=== PATIENT | male | born 1955 | race Caucasian/White ===

== ENCOUNTER 2023-04-03 05:35 | Inpatient (IN) | payer BC ==
[~2023-04-03] VITALS: Ht 172.7 cm; Wt 90.7 kg
[2023-04-03] MEDS ORDERED: METOCLOPRAMIDE HCL 10MG/2ML VIAL IV STA (06:01)
[2023-04-03] MEDS ORDERED: ONDANSETRON HCL 4MG/2ML INJ IV STA (06:01)
[2023-04-03 06:25] LABS: HEMATOCRIT. 36.2 % (42.0-52.0); HEMOGLOBIN. 11.8 g/dL (14.0-18.0); MEAN CORPUSCULAR HEMOGLOBIN 36.6 pg (28.0-32.0); MEAN CORPUSCULAR HGB CONC 32.6 g/dL (31.0-37.0); MEAN CORPUSCULAR VOLUME 112.2 fL (80.0-94.0); RED BLOOD CELL COUNT 3.23 mill/uL (4.7-6.1); RED CELL DISTRIBUTION WIDTH 15.8 % (11.6-14.6)
[2023-04-03 06:33] LABS: PROTHROMBIN TIME 20.6 sec (9.6-11.0)
[2023-04-03 06:41] LABS: ALANINE AMINOTRANSFERASE 35 IU/L (10-49); ALBUMIN 2.7 g/dL (3.2-4.8); ASPARTATE AMINOTRANSFERASE 48 IU/L (<34); BILIRUBIN TOTAL 12.7 mg/dL (0.1-1.0); CALCIUM 8.5 mg/dL (8.7-10.4); CARBON DIOXIDE 22 mEq/L (21-32); CHLORIDE 97 mEq/L (98-107); CREATININE 0.9 mg/dL (0.6-1.3); GLUCOSE 96 mg/dL (70-105); POTASSIUM 4.1 mEq/L (3.5-5.1); PROTEIN TOTAL 7.3 g/dL (6.0-8.3); SODIUM 128 mEq/L (136-145); TROPONIN I HIGH SENSITIVITY 5 ng/L (3.0-53); UREA NITROGEN BLOOD 19 mg/dL (9-23)
[2023-04-03 06:57] LABS: DIFFERENTIAL COMMENT 1
[2023-04-03] MEDS ORDERED: CEFTRIAXONE 1GM PREMIX 50 ML IV ONE (07:00)
[2023-04-03 07:31] LABS: PLATELET ESTIMATE NORMAL
[2023-04-03 07:34] LABS: PLATELET 132 x1000/uL (130-400)
[2023-04-03 09:15] VITALS: BP 103/59; PULSE 11; RESP 20; TEMP 98
[2023-04-03 09:55] VITALS: BP 103/59; PULSE 97; RESP 20; TEMP 97.8
[2023-04-03 12:00] VITALS: BP 110/64; PULSE 100; RESP 20; TEMP 97.8
[2023-04-03] MEDS ORDERED: ONDANSETRON HCL 4MG/2ML INJ IV PRN (14:15)
[2023-04-03 14:43] LABS: CLARITY URINE TURBID (CLEAR); COLOR URINE ORANGE (YELLOW); GLUCOSE URINE NEGATIVE (NEGATIVE); KETONES URINE NEGATIVE (NEGATIVE); LEUKOCYTE ESTERASE URINE 1+ (NEGATIVE); NITRITE URINE POSITIVE (NEGATIVE); OCCULT BLOOD URINE 1+ (NEGATIVE); PROTEIN URINE 1+ (NEGATIVE)
[2023-04-03 14:56] LABS: SQUAMOUS EPITHELIAL CELL URINE 1+ /lpf (RARE/1+)
[2023-04-03 14:57] LABS: BACTERIA URINE 4+
[2023-04-03 14:58] LABS: RBC URINE 0-2 /hpf (0-2)
[2023-04-03 16:00] VITALS: BP 102/46; PULSE 98; RESP 18; TEMP 97.8
[2023-04-03] MEDS ORDERED: PIPERACILLIN/TAZO 3.375G/50ML 50 ML IV STA (17:54)
[2023-04-03] MEDS ORDERED: MORPHINE SULFATE 2 MG/ML CPJ (NOT FOR IM USE) IV NR (18:00)
[2023-04-03] MEDS: PANTOPRAZOLE SODIUM 40 MG/VIAL IV SCH (19:13)
[2023-04-03] MEDS: DEXT 5%/0.9% NACL 1,000 ML IV SCH (19:14)
[2023-04-03 20:00] VITALS: BP 104/46; PULSE 106; RESP 19; TEMP 98.1
[2023-04-03] MEDS ORDERED: PIPERACILLIN/TAZO 3.375G/50ML IV SCH (20:00)
[2023-04-04] VITALS (8 sets, daily range): BP systolic 99–156; BP diastolic 49–79; PULSE 96–129; RESP 16–21; TEMP 97.4–99.9
[2023-04-04 00:02] LABS: INR 2.2; PROTHROMBIN TIME 22.3 sec (9.6-11.0)
[2023-04-04] MEDS: MEROPENEM 500 MG in SODIUM CHLORIDE 0.9% 50 ML IV SCH ×2 (00:38→06:46)
[2023-04-04 06:50] LABS: ALANINE AMINOTRANSFERASE 24 IU/L (10-49); ALBUMIN 2.2 g/dL (3.2-4.8); ASPARTATE AMINOTRANSFERASE 32 IU/L (<34); BASOPHILS % 0.1 % (0.0-2.0); BILIRUBIN DIRECT 4.4 mg/dL (<=3.0); CALCIUM 8.1 mg/dL (8.7-10.4); CARBON DIOXIDE 23 mEq/L (21-32); CHLORIDE 98 mEq/L (98-107); CREATININE 0.9 mg/dL (0.6-1.3); DIFFERENTIAL COMMENT 0; GLUCOSE 145 mg/dL (70-105); HEMATOCRIT. 29.7 % (42.0-52.0); HEMOGLOBIN. 10.1 g/dL (14.0-18.0); LYMPHOCYTES % 7.5 % (20.0-50.0); MEAN CORPUSCULAR HEMOGLOBIN 36.1 pg (28.0-32.0); MEAN CORPUSCULAR HGB CONC 33.9 g/dL (31.0-37.0); MEAN CORPUSCULAR VOLUME 106.6 fL (80.0-94.0); MEAN PLATELET VOLUME 7.9 fl (7.4-10.4); MONOCYTES % 5.6 % (2.0-8.0); NEUTROPHILS % 85.8 % (40.0-76.0); PLATELET 124 x1000/uL (130-400); POTASSIUM 3.4 mEq/L (3.5-5.1); PROTEIN TOTAL 6.4 g/dL (6.0-8.3); RED BLOOD CELL COUNT 2.79 mill/uL (4.7-6.1); RED CELL DISTRIBUTION WIDTH 15.3 % (11.6-14.6); SODIUM 129 mEq/L (136-145); UREA NITROGEN BLOOD 41 mg/dL (9-23); WHITE BLOOD COUNT 12.4 x1000/uL (4.5-11.0)
[2023-04-04 06:51] LABS: BILIRUBIN TOTAL 8.4 mg/dL (0.1-1.0)
[2023-04-04] MEDS: DEXT 5%/0.9% NACL 1,000 ML IV SCH (06:52)
[2023-04-04] MEDS ORDERED: ALBUMIN HUMAN 25GM/100ML (25%) IV PRN (09:00)
[2023-04-04 10:53] LABS: INR 1.9; PROTHROMBIN TIME 19.6 sec (9.6-11.0)
[2023-04-04 11:05] LABS: CALCIUM 8.2 mg/dL (8.7-10.4); CARBON DIOXIDE 26 mEq/L (21-32); CHLORIDE 99 mEq/L (98-107); CREATININE 0.8 mg/dL (0.6-1.3); GLUCOSE 117 mg/dL (70-105); IRON 28 ug/dL (65-175); POTASSIUM 3.9 mEq/L (3.5-5.1); SODIUM 130 mEq/L (136-145); TOTAL IRON BINDING CAPACITY 172 ug/dl (250-425); UREA NITROGEN BLOOD 40 mg/dL (9-23)
[2023-04-04 11:23] LABS: BASOPHILS % 0.1 % (0.0-2.0); DIFFERENTIAL COMMENT 0; EOSINOPHILS % 0.7 % (0.0-5.0); HEMATOCRIT. 31.2 % (42.0-52.0); HEMOGLOBIN. 10.6 g/dL (14.0-18.0); LYMPHOCYTES % 7.2 % (20.0-50.0); MEAN CORPUSCULAR HEMOGLOBIN 35.9 pg (28.0-32.0); MEAN CORPUSCULAR HGB CONC 33.8 g/dL (31.0-37.0); MEAN CORPUSCULAR VOLUME 106.3 fL (80.0-94.0); MEAN PLATELET VOLUME 8.8 fl (7.4-10.4); MONOCYTES % 6.2 % (2.0-8.0); NEUTROPHILS % 85.8 % (40.0-76.0); PLATELET 144 x1000/uL (130-400); RED BLOOD CELL COUNT 2.94 mill/uL (4.7-6.1); RED CELL DISTRIBUTION WIDTH 15.7 % (11.6-14.6); WHITE BLOOD COUNT 12.5 x1000/uL (4.5-11.0)
[2023-04-04 11:41] LABS: FERRITIN 1028 ng/mL (22-322); FOLIC ACID (FOLATE) SERUM 6.28 ng/mL (>5.38); HEPATITIS A AB IGM NEGATIVE (Negative); HEPATITIS B CORE AB IGM NEGATIVE (Negative); HEPATITIS B SURFACE ANTIGEN NEGATIVE (Negative); HEPATITIS C AB NON REACTIVE (Neg) (Negative)
[2023-04-04 11:45] LABS: VITAMIN B12 SERUM > 2000 pg/mL (211-911)
[2023-04-04 11:57] LABS: AMMONIA 21 uMol/L (<32)
[2023-04-04] MEDS ORDERED: LACTULOSE 20G/30ML UDC PO NR (12:45)
[2023-04-04] MEDS: MEROPENEM 1000MG in NORMAL SALINE 100ML IV SCH (14:59)
[2023-04-04] MEDS: PANTOPRAZOLE SODIUM 40 MG/VIAL IV SCH (14:59)
[2023-04-04] MEDS: PHYTONADIONE 10MG/ML INJ SUBCUT SCH (15:00)
[2023-04-05] VITALS (10 sets, daily range): BP systolic 106–138; BP diastolic 55–86; PULSE 77–102; RESP 16–20; TEMP 97.6–100.9
[2023-04-05] MEDS: MEROPENEM 1000MG in NORMAL SALINE 100ML IV SCH ×4 (01:46→20:52)
[2023-04-05] MEDS: METOPROLOL TARTRATE 25MG TABLET PO SCH ×2 (01:47→09:00)
[2023-04-05] MEDS: DEXT 5%/0.9% NACL 1,000 ML IV SCH ×3 (01:47→23:26)
[2023-04-05 07:17] LABS: BASOPHILS % 0.2 % (0.0-2.0); DIFFERENTIAL COMMENT 0; EOSINOPHILS % 3.8 % (0.0-5.0); HEMATOCRIT. 28.6 % (42.0-52.0); LYMPHOCYTES % 8.2 % (20.0-50.0); MEAN CORPUSCULAR HEMOGLOBIN 36.6 pg (28.0-32.0); MEAN CORPUSCULAR HGB CONC 34.9 g/dL (31.0-37.0); MEAN CORPUSCULAR VOLUME 104.8 fL (80.0-94.0); MEAN PLATELET VOLUME 8.4 fl (7.4-10.4); MONOCYTES % 9.5 % (2.0-8.0); NEUTROPHILS % 78.3 % (40.0-76.0); PLATELET 124 x1000/uL (130-400); RED BLOOD CELL COUNT 2.72 mill/uL (4.7-6.1); RED CELL DISTRIBUTION WIDTH 15.4 % (11.6-14.6); WHITE BLOOD COUNT 10.4 x1000/uL (4.5-11.0)
[2023-04-05 08:06] LABS: INR 1.6; PROTHROMBIN TIME 16.5 sec (9.6-11.0)
[2023-04-05 08:19] LABS: ALANINE AMINOTRANSFERASE 29 IU/L (10-49); ALBUMIN 2.3 g/dL (3.2-4.8); ASPARTATE AMINOTRANSFERASE 58 IU/L (<34); BILIRUBIN DIRECT 3.5 mg/dL (<=3.0); BILIRUBIN TOTAL 6.7 mg/dL (0.1-1.0); CARBON DIOXIDE 21 mEq/L (21-32); CHLORIDE 102 mEq/L (98-107); GLUCOSE 95 mg/dL (70-105); POTASSIUM 3.3 mEq/L (3.5-5.1); PROTEIN TOTAL 5.9 g/dL (6.0-8.3); SODIUM 133 mEq/L (136-145); UREA NITROGEN BLOOD 18 mg/dL (9-23)
[2023-04-05 08:22] LABS: CREATININE 0.4 mg/dL (0.6-1.3)
[2023-04-05] MEDS: PHYTONADIONE 10MG/ML INJ SUBCUT SCH ×2 (08:50→09:05)
[2023-04-05] MEDS: PANTOPRAZOLE SODIUM 40 MG/VIAL IV SCH (08:50)
[2023-04-05] MEDS ORDERED: DILTIAZEM HCL 5MG/ML 5ML VIAL IV SCH (09:00)
[2023-04-05] MEDS ORDERED: POTASSIUM CHLORIDE 20MEQ TABLET SR PO NR (11:30)
[2023-04-05] MEDS ORDERED: LIDOCAINE HCL 1% 10 MG/ML 10ML VIAL ONE (13:06)
[2023-04-05] MEDS ORDERED: SODIUM BICARBONATE 4% (2.4MEQ) 5ML VIAL IV ONE (13:07)
[2023-04-05 16:40] LABS: BODY FLUID MONOCYTES 5 %
[2023-04-05 16:43] LABS: BODY FLUID RBC 520 /cu mm (0-2000); BODY FLUID WBC 2465 /cu mm (0-200)
[2023-04-05] MEDS ORDERED: DILTIAZEM HCL 5MG/ML 5ML VIAL IV PRN (16:45)
[2023-04-05] MEDS: METOPROLOL TARTRATE 50MG TABLET PO SCH (20:53)
[2023-04-05] MEDS: ACETAMINOPHEN 325MG TABLET PO PRN (21:27)
[2023-04-06 04:00] VITALS: BP 109/54; PULSE 72; RESP 17; TEMP 99
[2023-04-06] MEDS: MEROPENEM 1000MG in NORMAL SALINE 100ML IV SCH ×3 (05:26→22:46)
[2023-04-06 07:05] LABS: INR 1.7; PROTHROMBIN TIME 17.7 sec (9.6-11.0)
[2023-04-06 07:12] LABS: HEMOGLOBIN. 10.7 g/dL (14.0-18.0); MEAN CORPUSCULAR HEMOGLOBIN 36.3 pg (28.0-32.0); MEAN CORPUSCULAR HGB CONC 34.4 g/dL (31.0-37.0); MEAN CORPUSCULAR VOLUME 105.6 fL (80.0-94.0); MEAN PLATELET VOLUME 8.5 fl (7.4-10.4); PLATELET 119 x1000/uL (130-400); RED BLOOD CELL COUNT 2.94 mill/uL (4.7-6.1); RED CELL DISTRIBUTION WIDTH 15.9 % (11.6-14.6); WHITE BLOOD COUNT 5.3 x1000/uL (4.5-11.0)
[2023-04-06 07:23] LABS: DIFFERENTIAL COMMENT 1
[2023-04-06 07:55] LABS: ALANINE AMINOTRANSFERASE 35 IU/L (10-49); ALBUMIN 2.1 g/dL (3.2-4.8); ASPARTATE AMINOTRANSFERASE 73 IU/L (<34); CALCIUM 7.9 mg/dL (8.7-10.4); CARBON DIOXIDE 24 mEq/L (21-32); CHLORIDE 103 mEq/L (98-107); CREATININE 0.4 mg/dL (0.6-1.3); GLUCOSE 97 mg/dL (70-105); POTASSIUM 3.9 mEq/L (3.5-5.1); PROTEIN TOTAL 6.1 g/dL (6.0-8.3); SODIUM 133 mEq/L (136-145); UREA NITROGEN BLOOD 18 mg/dL (9-23)
[2023-04-06 08:00] VITALS: BP 124/65; PULSE 72; RESP 18; TEMP 98.9
[2023-04-06] MEDS: PHYTONADIONE 10MG/ML INJ SUBCUT SCH (09:57)
[2023-04-06] MEDS: PANTOPRAZOLE SODIUM 40 MG/VIAL IV SCH (09:57)
[2023-04-06] MEDS: METOPROLOL TARTRATE 50MG TABLET PO SCH ×2 (10:01→22:46)
[2023-04-06 12:00] VITALS: BP 115/69; PULSE 72; RESP 18; TEMP 97.9
[2023-04-06 14:00] LABS: PLATELET ESTIMATE SLIGHTLY DECREASED; TARGET CELLS 1+
[2023-04-06 16:00] VITALS: BP 136/69; PULSE 83; RESP 20; TEMP 98
[2023-04-06] MEDS: DEXT 5%/0.9% NACL 1,000 ML IV SCH (17:50)
[2023-04-06 20:00] VITALS: BP 127/72; PULSE 75; RESP 18; TEMP 98.9
[2023-04-07] VITALS: BP 109/63; PULSE 75; RESP 17; TEMP 97.5
[2023-04-07] MEDS: DEXT 5%/0.9% NACL 1,000 ML IV SCH ×2 (01:08→14:30)
[2023-04-07 04:00] VITALS: BP 119/68; PULSE 69; RESP 18; TEMP 98
[2023-04-07] MEDS: MEROPENEM 1000MG in NORMAL SALINE 100ML IV SCH ×2 (05:30→14:30)
[2023-04-07 06:54] LABS: INR 1.6; PROTHROMBIN TIME 17.1 sec (9.6-11.0)
[2023-04-07 07:14] LABS: HEMATOCRIT. 32.6 % (42.0-52.0); HEMOGLOBIN. 10.9 g/dL (14.0-18.0); MEAN CORPUSCULAR HEMOGLOBIN 35.6 pg (28.0-32.0); MEAN CORPUSCULAR HGB CONC 33.3 g/dL (31.0-37.0); MEAN CORPUSCULAR VOLUME 106.8 fL (80.0-94.0); MEAN PLATELET VOLUME 8.4 fl (7.4-10.4); PLATELET 125 x1000/uL (130-400); RED BLOOD CELL COUNT 3.05 mill/uL (4.7-6.1); RED CELL DISTRIBUTION WIDTH 15.5 % (11.6-14.6)
[2023-04-07 07:18] LABS: ALANINE AMINOTRANSFERASE 37 IU/L (10-49); ALBUMIN 2.1 g/dL (3.2-4.8); ASPARTATE AMINOTRANSFERASE 75 IU/L (<34); CALCIUM 7.8 mg/dL (8.7-10.4); CARBON DIOXIDE 23 mEq/L (21-32); CHLORIDE 100 mEq/L (98-107); CREATININE 0.4 mg/dL (0.6-1.3); GLUCOSE 107 mg/dL (70-105); POTASSIUM 3.9 mEq/L (3.5-5.1); PROTEIN TOTAL 6.3 g/dL (6.0-8.3); SODIUM 130 mEq/L (136-145); UREA NITROGEN BLOOD 15 mg/dL (9-23)
[2023-04-07 07:20] LABS: DIFFERENTIAL COMMENT 1
[2023-04-07 08:00] VITALS: BP 126/71; PULSE 68; RESP 18; TEMP 98.4
[2023-04-07] MEDS: PANTOPRAZOLE SODIUM 40 MG/VIAL IV SCH (08:52)
[2023-04-07] MEDS: PHYTONADIONE 10MG/ML INJ SUBCUT SCH (08:52)
[2023-04-07] MEDS: METOPROLOL TARTRATE 50MG TABLET PO SCH ×2 (08:55→20:46)
[2023-04-07 12:00] VITALS: BP 117/58; PULSE 80; RESP 18; TEMP 98
[2023-04-07 16:00] VITALS: BP 130/65; PULSE 77; RESP 18; TEMP 98.2
[2023-04-07 16:54] LABS: PLATELET ESTIMATE DECREASED
[2023-04-07] MEDS ORDERED: MAGNESIUM 4 G PREMIX 100 ML IV NR (17:00)
[2023-04-07] MEDS: ACETAMINOPHEN 325MG TABLET PO PRN (18:42)
[2023-04-07 20:00] VITALS: BP 100/61; PULSE 66; RESP 20; TEMP 97.4
[2023-04-07] MEDS: MEROPENEM 1,000 MG in SODIUM CHLORIDE 0.9% 100 ML IV SCH (20:46)
[2023-04-08] VITALS: BP 134/71; PULSE 72; RESP 19; TEMP 97.1
[2023-04-08 04:00] VITALS: BP 120/69; PULSE 61; RESP 18; TEMP 97.3
[2023-04-08] MEDS: MEROPENEM 1,000 MG in SODIUM CHLORIDE 0.9% 100 ML IV SCH ×3 (06:26→23:36)
[2023-04-08 07:38] LABS: ALANINE AMINOTRANSFERASE 38 IU/L (10-49); ASPARTATE AMINOTRANSFERASE 81 IU/L (<34); BILIRUBIN DIRECT 2.9 mg/dL (<=3.0); BILIRUBIN TOTAL 5.4 mg/dL (0.1-1.0); CALCIUM 7.7 mg/dL (8.7-10.4); CARBON DIOXIDE 24 mEq/L (21-32); CHLORIDE 101 mEq/L (98-107); CREATININE 0.5 mg/dL (0.6-1.3); GLUCOSE 89 mg/dL (70-105); PHOSPHORUS 2.6 mg/dL (2.5-4.9); POTASSIUM 4.3 mEq/L (3.5-5.1); PROTEIN TOTAL 6.2 g/dL (6.0-8.3); SODIUM 130 mEq/L (136-145); UREA NITROGEN BLOOD 13 mg/dL (9-23)
[2023-04-08 08:00] VITALS: BP 121/68; PULSE 65; RESP 20; TEMP 98.6
[2023-04-08] MEDS: METOPROLOL TARTRATE 50MG TABLET PO SCH ×2 (09:01→23:37)
[2023-04-08] MEDS: PANTOPRAZOLE SODIUM 40 MG/VIAL IV SCH (09:01)
[2023-04-08] MEDS ORDERED: MAGNESIUM 2 G PREMIX 50 ML IV ONE (10:00)
[2023-04-08] MEDS ORDERED: MAGNESIUM 4 G PREMIX 100 ML IV SCH (10:00)
[2023-04-08] MEDS ORDERED: LIDOCAINE HCL 1% 10 MG/ML 10ML VIAL ONE (10:29)
[2023-04-08 12:00] VITALS: BP 118/79; PULSE 70; RESP 18; TEMP 98.4
[2023-04-08] MEDS ORDERED: METO-539 MT (12:48)
[2023-04-08 13:34] LABS: AMMONIA 55 uMol/L (<32)
[2023-04-08 16:00] VITALS: BP 130/67; PULSE 71; RESP 18; TEMP 97.6
[2023-04-08 20:00] VITALS: BP 124/72; PULSE 68; RESP 18; TEMP 98
[2023-04-09] VITALS: BP 133/79; PULSE 66; RESP 17; TEMP 98.4
[2023-04-09 04:00] VITALS: BP 127/84; PULSE 67; RESP 18; TEMP 99
[2023-04-09] MEDS: MEROPENEM 1,000 MG in SODIUM CHLORIDE 0.9% 100 ML IV SCH ×3 (06:23→21:43)
[2023-04-09 07:27] LABS: ALANINE AMINOTRANSFERASE 42 IU/L (10-49); ALBUMIN 2.1 g/dL (3.2-4.8); ASPARTATE AMINOTRANSFERASE 91 IU/L (<34); BILIRUBIN DIRECT 2.6 mg/dL (<=3.0); BILIRUBIN TOTAL 6.6 mg/dL (0.1-1.0); CALCIUM 7.3 mg/dL (8.7-10.4); CARBON DIOXIDE 24 mEq/L (21-32); CHLORIDE 103 mEq/L (98-107); CREATININE 0.4 mg/dL (0.6-1.3); GLUCOSE 95 mg/dL (70-105); PHOSPHORUS 2.5 mg/dL (2.5-4.9); POTASSIUM 4.8 mEq/L (3.5-5.1); PROTEIN TOTAL 6.5 g/dL (6.0-8.3); SODIUM 129 mEq/L (136-145); UREA NITROGEN BLOOD 14 mg/dL (9-23)
[2023-04-09 07:36] LABS: HEMATOCRIT. 33.1 % (42.0-52.0); HEMOGLOBIN. 11.1 g/dL (14.0-18.0); MEAN CORPUSCULAR HEMOGLOBIN 35.6 pg (28.0-32.0); MEAN CORPUSCULAR HGB CONC 33.7 g/dL (31.0-37.0); MEAN CORPUSCULAR VOLUME 105.7 fL (80.0-94.0); MEAN PLATELET VOLUME 8.6 fl (7.4-10.4); PLATELET 116 x1000/uL (130-400); RED BLOOD CELL COUNT 3.13 mill/uL (4.7-6.1); RED CELL DISTRIBUTION WIDTH 15.5 % (11.6-14.6); WHITE BLOOD COUNT 6.5 x1000/uL (4.5-11.0)
[2023-04-09 08:00] VITALS: BP 119/69; PULSE 67; RESP 18; TEMP 97.9
[2023-04-09 08:14] LABS: DIFFERENTIAL COMMENT 1
[2023-04-09] MEDS: SODIUM CHLORIDE 0.9% 1,000 ML IV SCH (08:15)
[2023-04-09] MEDS ORDERED: LACTULOSE 20G/30ML UDC PO NR (08:15)
[2023-04-09] MEDS: PANTOPRAZOLE SODIUM 40 MG/VIAL IV SCH (09:21)
[2023-04-09] MEDS: METOPROLOL TARTRATE 50MG TABLET PO SCH ×2 (09:21→21:43)
[2023-04-09 09:31] LABS: INR 1.6; PROTHROMBIN TIME 16.6 sec (9.6-11.0)
[2023-04-09] MEDS ORDERED: MAGNESIUM 2 G PREMIX 50 ML IV NR (10:00)
[2023-04-09 12:00] VITALS: BP 130/73; PULSE 66; RESP 18; TEMP 97.3
[2023-04-09 15:07] LABS: ANISOCYTOSIS 1+; PLATELET ESTIMATE SLIGHTLY DECREASED; TARGET CELLS 1+
[2023-04-09 16:00] VITALS: BP 120/79; PULSE 84; RESP 18; TEMP 97.4
[2023-04-09] MEDS ORDERED: FURO20TA4 PO (18:40)
[2023-04-09 20:00] VITALS: BP 138/67; PULSE 75; RESP 17; TEMP 98.1
[2023-04-10] VITALS: BP 108/54; PULSE 69; RESP 20; TEMP 98.6
[2023-04-10 04:00] VITALS: BP 110/52; PULSE 78; RESP 18; TEMP 98.2
[2023-04-10] MEDS: MEROPENEM 1,000 MG in SODIUM CHLORIDE 0.9% 100 ML IV SCH ×3 (05:52→20:54)
[2023-04-10 07:56] LABS: ALANINE AMINOTRANSFERASE 40 IU/L (10-49); ASPARTATE AMINOTRANSFERASE 84 IU/L (<34); BILIRUBIN DIRECT 2.6 mg/dL (<=3.0); BILIRUBIN TOTAL 6.8 mg/dL (0.1-1.0); CALCIUM 7.7 mg/dL (8.7-10.4); CARBON DIOXIDE 23 mEq/L (21-32); CHLORIDE 105 mEq/L (98-107); CREATININE 0.3 mg/dL (0.6-1.3); GLUCOSE 89 mg/dL (70-105); PHOSPHORUS 2.4 mg/dL (2.5-4.9); POTASSIUM 4.5 mEq/L (3.5-5.1); PROTEIN TOTAL 6.2 g/dL (6.0-8.3); SODIUM 133 mEq/L (136-145); UREA NITROGEN BLOOD 13 mg/dL (9-23)
[2023-04-10 08:00] VITALS: BP 121/71; PULSE 65; RESP 18; TEMP 97.4
[2023-04-10 08:21] LABS: BASOPHILS % 0.9 % (0.0-2.0); DIFFERENTIAL COMMENT 0; EOSINOPHILS % 8.5 % (0.0-5.0); HEMATOCRIT. 30.6 % (42.0-52.0); HEMOGLOBIN. 10.2 g/dL (14.0-18.0); LYMPHOCYTES % 24.1 % (20.0-50.0); MEAN CORPUSCULAR HEMOGLOBIN 35.5 pg (28.0-32.0); MEAN CORPUSCULAR HGB CONC 33.5 g/dL (31.0-37.0); MEAN CORPUSCULAR VOLUME 106.2 fL (80.0-94.0); MEAN PLATELET VOLUME 8.1 fl (7.4-10.4); MONOCYTES % 12.6 % (2.0-8.0); NEUTROPHILS % 53.9 % (40.0-76.0); PLATELET 110 x1000/uL (130-400); RED BLOOD CELL COUNT 2.88 mill/uL (4.7-6.1); RED CELL DISTRIBUTION WIDTH 15.3 % (11.6-14.6); WHITE BLOOD COUNT 6.2 x1000/uL (4.5-11.0)
[2023-04-10] MEDS: PANTOPRAZOLE SODIUM 40 MG/VIAL IV SCH (08:24)
[2023-04-10] MEDS: METOPROLOL TARTRATE 50MG TABLET PO SCH ×2 (08:25→20:54)
[2023-04-10] MEDS: SODIUM CHLORIDE 0.9% 1,000 ML IV SCH (08:25)
[2023-04-10] MEDS ORDERED: MAGNESIUM 2 G PREMIX 50 ML IV NR (10:00)
[2023-04-10 12:00] VITALS: BP 135/66; PULSE 61; RESP 16; TEMP 97.8
[2023-04-10 12:03] LABS: AMMONIA < 10 uMol/L (<32)
[2023-04-10 16:00] VITALS: BP 127/61; PULSE 63; RESP 18; TEMP 97.7
[2023-04-10 20:00] VITALS: BP 115/56; PULSE 75; RESP 17; TEMP 97.6
[2023-04-10] MEDS: RIFAXIMIN 550 MG TABLET PO SCH (20:53)
[2023-04-11] VITALS: BP 116/59; PULSE 77; RESP 18; TEMP 97.8
[2023-04-11] MEDS: SODIUM CHLORIDE 0.9% 1,000 ML IV SCH ×2 (00:32→20:15)
[2023-04-11 04:00] VITALS: BP 136/77; PULSE 79; RESP 17; TEMP 97.7
[2023-04-11] MEDS: MEROPENEM 1,000 MG in SODIUM CHLORIDE 0.9% 100 ML IV SCH ×3 (06:24→23:45)
[2023-04-11 07:36] LABS: BASOPHILS % 1.2 % (0.0-2.0); DIFFERENTIAL COMMENT 0; EOSINOPHILS % 9.5 % (0.0-5.0); HEMATOCRIT. 33.5 % (42.0-52.0); HEMOGLOBIN. 11.2 g/dL (14.0-18.0); MEAN CORPUSCULAR HGB CONC 33.4 g/dL (31.0-37.0); MEAN CORPUSCULAR VOLUME 107.6 fL (80.0-94.0); MEAN PLATELET VOLUME 8.3 fl (7.4-10.4); MONOCYTES % 11.9 % (2.0-8.0); NEUTROPHILS % 48.4 % (40.0-76.0); PLATELET 119 x1000/uL (130-400); RED BLOOD CELL COUNT 3.11 mill/uL (4.7-6.1); RED CELL DISTRIBUTION WIDTH 15.9 % (11.6-14.6); WHITE BLOOD COUNT 5.8 x1000/uL (4.5-11.0)
[2023-04-11 07:42] LABS: ALANINE AMINOTRANSFERASE 43 IU/L (10-49); ALBUMIN 2.3 g/dL (3.2-4.8); ASPARTATE AMINOTRANSFERASE 90 IU/L (<34); BILIRUBIN DIRECT 2.6 mg/dL (<=3.0); BILIRUBIN TOTAL 7.5 mg/dL (0.1-1.0); CALCIUM 8.3 mg/dL (8.7-10.4); CARBON DIOXIDE 24 mEq/L (21-32); CHLORIDE 105 mEq/L (98-107); GLUCOSE 93 mg/dL (70-105); PHOSPHORUS 2.7 mg/dL (2.5-4.9); POTASSIUM 4.8 mEq/L (3.5-5.1); PROTEIN TOTAL 6.8 g/dL (6.0-8.3); SODIUM 134 mEq/L (136-145); UREA NITROGEN BLOOD 11 mg/dL (9-23)
[2023-04-11 07:49] LABS: CREATININE 0.4 mg/dL (0.6-1.3)
[2023-04-11 08:00] VITALS: BP 136/64; PULSE 58; RESP 18; TEMP 97
[2023-04-11] MEDS: RIFAXIMIN 550 MG TABLET PO SCH ×2 (09:01→21:17)
[2023-04-11] MEDS: METOPROLOL TARTRATE 50MG TABLET PO SCH ×2 (09:01→21:19)
[2023-04-11] MEDS: PANTOPRAZOLE SODIUM 40 MG/VIAL IV SCH (09:02)
[2023-04-11] MEDS ORDERED: MAGNESIUM 2 G PREMIX 50 ML IV NR (11:00)
[2023-04-11 12:00] VITALS: BP 128/63; PULSE 60; RESP 19; TEMP 97.5
[2023-04-11] MEDS ORDERED: FUROSEMIDE 40MG/4ML VIAL IVP NR (12:00)
[2023-04-11 13:51] LABS: AMMONIA 18 uMol/L (<32)
[2023-04-11 16:00] VITALS: BP 103/50; PULSE 83; RESP 18; TEMP 97.7
[2023-04-11 20:00] VITALS: BP 143/66; PULSE 64; RESP 19; TEMP 98.1
[2023-04-12] VITALS: BP 109/45; PULSE 60; RESP 19; TEMP 98.2
[2023-04-12 04:00] VITALS: BP_SYST 106; BP_SYST 141; BP_DIAS 54; BP_DIAS 87; PULSE 60; RESP 18; RESP 19; TEMP 97.7; TEMP 98.2
[2023-04-12] MEDS: MEROPENEM 1,000 MG in SODIUM CHLORIDE 0.9% 100 ML IV SCH ×2 (06:12→14:49)
[2023-04-12 07:57] LABS: BASOPHILS % 2.7 % (0.0-2.0); DIFFERENTIAL COMMENT 0; EOSINOPHILS % 8.7 % (0.0-5.0); HEMATOCRIT. 30.6 % (42.0-52.0); HEMOGLOBIN. 10.1 g/dL (14.0-18.0); LYMPHOCYTES % 30.6 % (20.0-50.0); MEAN CORPUSCULAR HEMOGLOBIN 35.7 pg (28.0-32.0); MEAN CORPUSCULAR HGB CONC 33.2 g/dL (31.0-37.0); MEAN CORPUSCULAR VOLUME 107.6 fL (80.0-94.0); MEAN PLATELET VOLUME 8.4 fl (7.4-10.4); MONOCYTES % 14.6 % (2.0-8.0); NEUTROPHILS % 43.4 % (40.0-76.0); PLATELET 119 x1000/uL (130-400); RED BLOOD CELL COUNT 2.84 mill/uL (4.7-6.1); RED CELL DISTRIBUTION WIDTH 15.4 % (11.6-14.6); WHITE BLOOD COUNT 5.2 x1000/uL (4.5-11.0)
[2023-04-12 08:00] VITALS: BP 128/62; PULSE 63; RESP 17; TEMP 97.9
[2023-04-12] MEDS: RIFAXIMIN 550 MG TABLET PO SCH (09:23)
[2023-04-12] MEDS: PANTOPRAZOLE SODIUM 40 MG/VIAL IV SCH (09:23)
[2023-04-12] MEDS: METOPROLOL TARTRATE 50MG TABLET PO SCH (09:23)
[2023-04-12 12:00] VITALS: BP 128/67; PULSE 96; RESP 15; TEMP 97.9
[2023-04-12] MEDS ORDERED: MAGNESIUM 2 G PREMIX 50 ML IV SCH (12:00)
[2023-04-12 12:59] VITALS: BP 128/62; PULSE 67; TEMP 98; O2SAT 100
[2023-04-12] MEDS ORDERED: MAGN400T29 MT (16:58)
[2023-04-12] MEDS ORDERED: LACT10SO7 MT (16:58)
[2023-04-12] MEDS ORDERED: MEROPENEM 1G/100ML 100 ML IV SCH (22:00)
== END 2023-04-12 17:22 | disposition home health service (06) | DRG 433 ==
LOC: ER 05:35 → EDBEDREQ 07:00 → 7EST 08:02 → EDBEDREQ 08:04
PROVIDERS: ADMIT Internal Medicine; ATTEND Internal Medicine
PROC: 30233K1 Transfusion of Nonautologous Frozen Plasma into Peripheral Vein, Percutaneous Approach (ICD-10-PCS; principal; 2023-04-04)
PROC: 0W9G3ZZ Drainage of Peritoneal Cavity, Percutaneous Approach (ICD-10-PCS; 2023-04-05)
PROC: 02HV33Z Insertion of Infusion Device into Superior Vena Cava, Percutaneous Approach (ICD-10-PCS; 2023-04-08)
PROC: B5181ZA Fluoroscopy of Superior Vena Cava using Low Osmolar Contrast, Guidance (ICD-10-PCS; 2023-04-08)
PROC: B548ZZA Ultrasonography of Superior Vena Cava, Guidance (ICD-10-PCS; 2023-04-08)
DX: K70.31 Alcoholic cirrhosis of liver with ascites (principal); E87.1 Hypo-osmolality and hyponatremia; J90 Pleural effusion, not elsewhere classified; N39.0 Urinary tract infection, site not specified; J44.9 Chronic obstructive pulmonary disease, unspecified; E80.6 Other disorders of bilirubin metabolism; E88.09 Other disorders of plasma-protein metabolism, not elsewhere classified; R74.8 Abnormal levels of other serum enzymes; K42.9 Umbilical hernia without obstruction or gangrene; K57.90 Diverticulosis of intestine, part unspecified, without perforation or abscess without bleeding; K59.00 Constipation, unspecified
CPT/HCPCS: 36415; 36573; 49083; 71045; 74176; 76700; 80048; 80053; 80076; 81003; 82040; 82140; 82248; 82270; 82607; 82728; 82746; 83540; 83550; 83615; 83735; 83880; 84100; 84484; 85025; 85044; 85384; 86705; 86709; 86850; 86900; 86927; 87077; 87186; 87340; 88108; 88312; 93306; 93970; 99285; C1725; C9113; J0696; J1940; J2185; J2270; J2543; J3430; J3475; J3490; J7030; J7042; J7050; P9017